=== PATIENT | female | born 1960 | race Caucasian/White ===

== ENCOUNTER → 2017-06-02 08:34 | Outpatient (CLI) | payer BC ==
[2011-07-28 08:32] VITALS: BMI 29.1
== END | disposition home or self-care (01) ==
LOC: D.CT 08:34
DX: I71.2 Thoracic aortic aneurysm, without rupture (principal)

== ENCOUNTER → 2019-07-25 15:27 | Outpatient (CLI) | payer BC ==
[2011-07-28 08:32] VITALS: BMI 29.1
== END | disposition home or self-care (01) ==
LOC: D.RT 15:27
PROVIDERS: ATTEND Family Medicine
DX: J41.0 Simple chronic bronchitis (principal)

== ENCOUNTER → 2019-08-07 12:41 | Outpatient (CLI) | payer BC ==
[2011-07-28 08:32] VITALS: BMI 29.1
[2019-08-07 14:12] LABS: BASOPHILS 0.5 % (0-2); EOSINOPHILS 1.1 % (0-7); HEMATOCRIT 39.1 % (36.0-48.0); HEMOGLOBIN 13.4 g/dL (12-16); IMMATURE GRANULOCYTES 0.2 % (0-5); LYMPHOCYTES 33.1 % (15-50); MCHC 34.3 g/dL (31.0-37.0); MCV 87.7 fL (80.0-100.0); MEAN PLATELET VOLUME 10.7 fL (7.4-10.4); MONOCYTES 7.5 % (2-11); NEUTROPHILS 57.6 % (40-80); PLATELET COUNT 255 10x3/uL (130-400); RBC 4.46 10x6/uL (4.00-5.40); WBC 9.1 10x3/uL (4.8-10.8)
[2019-08-08 07:13] LABS: IMMUNOGLOBULIN A 167 mg/dL (87-352); IMMUNOGLOBULIN G 1140 mg/dL (700-1600); IMMUNOGLOBULIN M 95 mg/dL (26-217)
[2019-08-09 22:06] LABS: IMMUNOGLOBULIN E 26 IU/mL (6-495)
== END | disposition home or self-care (01) ==
LOC: D.RAD 12:41
PROVIDERS: ATTEND Internal Medicine Pulmonary Disease
DX: J45.909 Unspecified asthma, uncomplicated (principal)

== ENCOUNTER → 2019-10-20 09:11 | Outpatient (CLI) | payer BC ==
[2011-07-28 08:32] VITALS: BMI 29.1
== END | disposition home or self-care (01) ==
LOC: D.CT 09:00
PROVIDERS: ATTEND Family Medicine
DX: J32.8 Other chronic sinusitis (principal)

== ENCOUNTER → 2019-11-06 12:42 | Outpatient (CLI) | payer BC ==
[2011-07-28 08:32] VITALS: BMI 29.1
== END | disposition home or self-care (01) ==
LOC: D.LABREF 12:42
PROVIDERS: ATTEND Otolaryngology
DX: J32.0 Chronic maxillary sinusitis (principal)